=== PATIENT | female | born 1955 | race Hispanic/Latino ===

== ENCOUNTER 2017-01-10 16:02 | Emergency (ER) | payer BC ==
[2017-01-10 16:05] VITALS: BMI 21.9
[2017-01-10 16:17] VITALS: RESP 18; TEMP 97.5
--- NOTE | 2017-01-10 16:17 | ED PDOC ---
Arrival/HPI - General Chief Complaint: Trauma Time Seen by Provider: 01/10/17 16:04 Historian: Patient - History of Present Illness Narrative History of Present Illness (Text): 01/10/17 16:14 61yo female with history of tachycardia BIBA for sharp lower back pain s/p trauma at 1430. States she slipped on the wet floor she was cleaning and fell down 2stairs. States she fell with her back. Reports history of sciatica in the pain. Her pain is only when she movement. Did not take any medication for pain. Denies hitting her head anywhere. Denies focal weakness, urinary/fecal incontinence, saddle anesthesia, LOC, nausea, vomiting, abdominal pain, any other complaint. Past Medical History - Provider Review Nursing Documentation Reviewed: Yes - Infectious Disease Hx of Infectious Diseases: None - Reproductive Menopause: Yes - Cardiac Hx Cardiac Disorders: Yes Other/Comment: sinus tachy - Pulmonary Hx Respiratory Disorders: No - Neurological Hx Neurological Disorder: No Hx Paralysis: No - HEENT Hx HEENT Disorder: No - Renal Hx Renal Disorder: No - Endocrine/Metabolic Hx Endocrine Disorders: No - Hematological/Oncological Hx Blood Disorders: No Hx Blood Transfusions: No Hx Blood Transfusion Reaction: No - Integumentary Hx Dermatological Disorder: No - Musculoskeletal/Rheumatological Hx Musculoskeletal Disorders: Yes (LOWER SPINE/L HIP) - Gastrointestinal Hx Gastrointestinal Disorders: No - Genitourinary/Gynecological Hx Genitourinary Disorders: No - Psychiatric Hx Psychophysiologic Disorder: No Hx Substance Use: No - Anesthesia Hx Anesthesia: No Hx Anesthesia Reactions: Yes (HEADACHES) Hx Malignant Hyperthermia: No Family/Social History - Physician Review Nursing Documentation Reviewed: Yes Family/Social History: Unknown Family HX Smoking Status: Never Smoked Hx Alcohol Use: No Hx Substance Use: No Allergies/Home Meds Allergies/Adverse Reactions: Allergies No Known Allergies Allergy (Verified 01/24/15 14:10) Home Medications: Home Meds Medication Instructions Recorded Confirmed Ergocalciferol (Vitamin D2) 50,000 iu PO SUN 01/24/15 01/26/15 [Vitamin D] Review of Systems - Physician Review All systems were reviewed & negative as marked: Yes - Review of Systems Constitutional: Normal Eyes: Normal ENT: Normal Respiratory: Normal Cardiovascular: Normal Gastrointestinal: Normal Genitourinary Female: Normal Musculoskeletal: Back Pain Skin: Normal Neurological: Normal Endocrine: Normal Hemo/Lymphatic: Normal Psychiatric: Normal Physical Exam Vital Signs Reviewed: Yes Vital Signs Temp Pulse Resp BP Pulse Ox 01/10/17 16:05 97.5 F L 111 H 18 155/84 H 100 01/10/17 16:03 97.5 F L 111 H 16 155/84 H 100 Temperature: Afebrile Blood Pressure: Normal Pulse: Tachycardic Respiratory Rate: Normal Appearance: Positive for: Well-Appearing, Non-Toxic, Comfortable Pain Distress: None Mental Status: Positive for: Alert and Oriented X 3 - Systems Exam Head: Present: Atraumatic, Normocephalic Pupils: Present: PERRL Extroacular Muscles: Present: EOMI Conjunctiva: Present: Normal Mouth: Present: Moist Mucous Membranes Neck: Present: Normal Range of Motion Respiratory/Chest: Present: Clear to Auscultation, Good Air Exchange. No: Respiratory Distress, Accessory Muscle Use Cardiovascular: Present: Regular Rate and Rhythm, Normal S1, S2. No: Murmurs Abdomen: Present: Normal Bowel Sounds. No: Tenderness, Distention, Peritoneal Signs Back: Present: Pain with Leg Raise (B/L). No: Midline Tenderness, Paraspinal Tenderness Upper Extremity: Present: Normal Inspection. No: Cyanosis, Edema Lower Extremity: Present: Normal Inspection. No: Edema Neurological: Present: GCS=15, CN II-XII Intact, Speech Normal Skin: Present: Warm, Dry, Normal Color. No: Rashes Psychiatric: Present: Alert, Oriented x 3, Normal Insight, Normal Concentration Medical Decision Making ED Course and Treatment: 01/10/17 17:33 LS xray - No acute finding noted Pt's pain improved in ED with medication. She was ambulatory and have no focal neurological deficit. DC home with Naprosyn and flexeril. Referred to her PMD/ Ortho. TRT ED for any new or worsening symptom - RAD Interpretation Radiology Orders: 01/10/17 16:31 LS SPINE WITH OBL > 18 YRS OLD [RAD] Stat - Medication Orders Current Medication Orders: Discontinued Medications Cyclobenzaprine HCl (Flexeril) 10 mg PO STAT STA Stop: 01/10/17 16:14 Last Admin: 01/10/17 16:28 Dose: 10 MG Ketorolac Tromethamine (Toradol) 60 mg IM STAT STA Stop: 01/10/17 16:14 Disposition/Present on Arrival - Present on Arrival Any Indicators Present on Arrival: No History of DVT/PE: No History of Uncontrolled Diabetes: No Urinary Catheter: No History of Decub. Ulcer: No History Surgical Site Infection Following: None - Disposition Have Diagnosis and Disposition been Completed?: Yes Diagnosis: Back pain Disposition: HOME/ ROUTINE Disposition Time: 17:15 Patient Plan: Discharge Patient Problems: Current Active Problems Problem Status Diagnosed Back pain Acute Condition: STABLE Discharge Instructions (ExitCare): Back Pain (ED) Additional Instructions: Follow up with your doctor/Orthopedics Rest Return to ED for any new or worsening symptoms Prescriptions: Cyclobenzaprine [Cyclobenzaprine HCl] 10 mg PO TID #10 tab Naproxen [Naprosyn] 500 mg PO BID #20 tablet Referrals: Palmira Pratt MD [Primary Care Provider] - Follow up with primary Michele Zepeda III, MD [Medical Doctor] - Follow up with primary
[2017-01-10 18:00] VITALS: BP 138/84; PULSE 98; O2SAT 98
--- NOTE | 2017-01-10 18:16 | RAD ---
PROCEDURE: Radiographs of the Lumbar Spine. GI HISTORY: Back pain COMPARISON: No prior. FINDINGS: BONES: There is mild dextrocurvature in the lumbar spine. There is normal lumbar lordosis. There is mild degenerative anterior listhesis of L4 on L5. There is no acute fracture or spondylolysis. There is diffuse bone demineralization. DISC SPACES: There is mild degenerative disc disease at L4-5 and L5-S1 with mild reduced disc heights and facet arthropathy. OTHER FINDINGS: None. IMPRESSION: No acute fracture, spondylolysis or spondylolisthesis. Mild degenerative disc disease at L4-5 and L5-S1.
== END 2017-01-10 17:57 | disposition home or self-care (01) ==
LOC: ED 16:02
DX: M54.5 Low back pain (principal)
CPT/HCPCS: 72110; 96372; 99285; J1885

== ENCOUNTER 2018-10-19 08:43 | Day surgery (SDC) | payer BC, OTHER ==
[2018-10-19 09:20] VITALS: TEMP 98.1
[2018-10-19] MEDS ORDERED: Midazolam 2 MG/2 ML VIAL ONE (10:08)
[2018-10-19] MEDS ORDERED: Propofol 10 mg/ml Inj (20 ML) ONE (10:08)
[2018-10-19] MEDS ORDERED: Sodium Chloride 0.9% 1,000 ML IV SCH (11:30)
[2018-10-19 16:40] VITALS: BP 100/68; PULSE 100; RESP 18; O2SAT 100
== END 2018-10-19 13:20 | disposition home or self-care (01) ==
LOC: ENDO 08:43
PROVIDERS: ATTEND Internal Medicine Gastroenterology
DX: K29.50 Unspecified chronic gastritis without bleeding (principal); K21.9 Gastro-esophageal reflux disease without esophagitis; K44.9 Diaphragmatic hernia without obstruction or gangrene; K25.9 Gastric ulcer, unspecified as acute or chronic, without hemorrhage or perforation; R10.13 Epigastric pain
CPT/HCPCS: 43239; 88305; 88342; J2001; J2250; J2704; J7030; J7040

== ENCOUNTER 2018-11-03 09:07 | Outpatient (CLI) | payer BC, OTHER | END 2018-11-03 09:08 | disposition home or self-care (01) | LOC: RAD 09:07 ==